=== PATIENT | female | born 1980 | race Two or more races ===

== ENCOUNTER 2023-06-28 00:51 | Emergency (ER) | payer MEDICAID ==
[~2023-06-28] VITALS: Ht 165.1 cm; Wt 118.2 kg
[~2023-06-28 00:51] MED LIST: METO-292 PO; NO HOME MEDS; OXYC-150 PO
[2023-06-28] MEDS ORDERED: gabapentin 400mg capsule PO STA (01:06)
[2023-06-28] MEDS ORDERED: acetaminophen 325mg tablet PO ONE (01:10)
[2023-06-28 01:39] LABS: URINE HCG NEGATIVE (NEG)
[2023-06-28] MEDS ORDERED: ketorolac tromethamine 15mg/ml inj. IM ONE (01:50)
[2023-06-28] MEDS ORDERED: GABA-530 PO (02:01)
[2023-06-28] MEDS ORDERED: IBUP-1984 PO (02:01)
[2023-06-28 02:16] VITALS: BP 127/82; PULSE 88; RESP 18; O2SAT 100
== END 2023-06-28 02:18 | disposition home or self-care (01) ==
LOC: ER 00:51
DX: M79.10 Myalgia, unspecified site (principal); G25.81 Restless legs syndrome; G89.29 Other chronic pain; Z72.89 Other problems related to lifestyle; Z56.0 Unemployment, unspecified; Z79.899 Other long term (current) drug therapy; Z88.1 Allergy status to other antibiotic agents
CPT/HCPCS: 81025; 96372; 99283; J1885